=== PATIENT | male | born 1985 | race Caucasian/White ===

== ENCOUNTER 2022-09-25 14:39 | Emergency (ER) | payer MEDICAID ==
[2022-09-25] MEDS ORDERED: XYLOCAINE 1%/Epi 1:100000 MDV 20 ML ONE (14:48)
[2022-09-25] MEDS ORDERED: Adacel Vial IM ONE ×2 (15:09→15:10)
--- NOTE | 2022-09-25 15:19 | ERPHSYRPT ---
- History of Present Illness Source: patient Exam Limitations: no limitations Patient Subjective Stated Complaint: laceration to left hand Triage Nursing Assessment: Patient reports to emergency room with laceration to left anterior hand from a knife. Range of motion within normal limitations. Pulses and cap refill present. Patient reports pain 5/10 at this time. Physician History: 37 yo WM w L 3.5cm palm laceration per pocket knife at home accidently before arrival. Pt is R handed and is not up to date on his Tdap. Other injuries are denied at this time. Pt has FROM of all digits, along with good distal capillary return and sensation. Occurred: just prior to arrival Method of Injury: incised Severity of Pain-Max: mild Severity of Pain-Current: mild Extremities Pain Location: hand: left Modifying Factors: Improves With: nothing Associated Symptoms: none Hx Tetanus, Diphtheria Vaccination/Date Given: No Hx Influenza Vaccination/Date Given: No Travel Risk - International Travel Have you traveled outside of the country in past 3 weeks: No - Coronavirus Screening Are you exhibiting any of the following symptoms?: No Close contact with a COVID-19 positive Pt in past 14-21 Days: No - Vaccine Status Have you recieved a Covid-19 vaccination: No - Review of Systems Constitutional: No Symptoms Eyes: No Symptoms Ears, Nose, & Throat: No Symptoms Respiratory: No Symptoms Cardiac: No Symptoms Abdominal/Gastrointestinal: No Symptoms Genitourinary Symptoms: No Symptoms Skin: No Symptoms Neurological: No Symptoms Psychological: No Symptoms Endocrine: No Symptoms Hematologic/Lymphatic: No Symptoms Immunological/Allergic: No Symptoms - Past Medical History Pertinent Past Medical History: No Neurological History: No Pertinent History ENT History: No Pertinent History Cardiac History: No Pertinent History Respiratory History: No Pertinent History Endocrine Medical History: No Pertinent History Musculoskeletal History: No Pertinent History GI Medical History: No Pertinent History History: No Pertinent History Psycho-Social History: No Pertinent History Male Reproductive Disorders: No Pertinent History - Past Surgical History Past Surgical History: Yes Neuro Surgical History: No Pertinent History Cardiac: No Pertinent History Respiratory: No Pertinent History Gastrointestinal: No Pertinent History Genitourinary: No Pertinent History Musculoskeletal: No Pertinent History Male Surgical History: No Pertinent History Other Surgical History: surgery on jaw - Social History Smoking Status: Current every day smoker Exposure to second hand smoke: Yes Drug Use: marijuana Patient Lives Alone: No - Nursing Vital Signs Nursing Vital Signs: Initial Vital Signs Pulse Rate 110 H 05/10/23 14:39 Respiratory Rate 19 09/25/22 14:39 Blood Pressure 134/80 09/25/22 14:39 O2 Sat by Pulse Oximetry 98 09/25/22 14:39 Pain Scale Pain Intensity 5 Tachy - Physical Exam General Appearance: no apparent distress Eyes, Ears, Nose, Throat Exam: normal ENT inspection, TMs normal, pharynx normal, moist mucous membranes Neck Exam: normal inspection, non-tender, supple, full range of motion, No Brudzinski, No Kernig's, No meningismus, No carotid bruit Cardiovascular/Respiratory Exam: normal breath sounds, tachycardia Abdominal Exam: non-tender, soft Back Exam: normal inspection Shoulder Exam: normal inspection Elbow/Forearm Exam: normal inspection Wrist Exam: normal inspection Hand Exam: laceration (3.5 cm L palm lac/Good distal capillary return and sensation/FROM of all digits) DTR - Upper Extremity Exam: bicep (R): 2+, bicep (L): 2+ Neuro/Tendon Exam: normal sensation, normal motor functions, normal tendon funct ions, responds to pain, no evidence tendon injury, No motor deficit, No sensory deficit Mental Status Exam: alert, oriented x 3, cooperative Skin Exam: normal color, warm, dry, No rash SpO2 Interpretation: normal SpO2: 98 O2 Delivery: Room Air Procedures - Laceration/Wound Repair Left Hand Wound Location: Left (L palm) Wound Length (cm): 3.5 Wound's Depth, Shape: linear Wound Explored: clean Irrigated: Yes Hibiclens Prep: Yes Anesthesia: local, 1% Lidocaine Volume Anesthetic (ccs): 5 Wound Repaired With: sutures Suture Size/Type: 3-0 (3.0 Ethilon x7) - Course Nursing assessment & vital signs reviewed: Yes Ordered Tests: Medication Summary Discontinued Medications Generic Name Dose Route Start Last Admin Trade Name Freq PRN Reason Stop Dose Admin Diphtheria/Tetanus/Acell Pertussis 0.5 ml 09/25/22 15:09 09/25/22 15:11 Tdap --Diph,Pertuss(Acell),Tet Vac/Pf 0.5 Ml Vial IM 09/25/22 15:10 0.5 ml .ONCE ONE Administration Diphtheria/Tetanus/Acell Pertussis Confirm 09/25/22 15:10 Tdap --Diph,Pertuss(Acell),Tet Vac/Pf 0.5 Ml Vial Administered 09/25/22 15:11 Dose 0.5 ml IM .STK-MED ONE Lidocaine/Epinephrine Confirm 09/25/22 14:48 Lidocaine Hcl/Epinephrine 1% 20 Ml Administered 09/25/22 14:49 Dose 5 ml .ROUTE .STK-MED ONE - Progress Progress: improved Progress Note: 09/25/22 15:19 Nursing note and vital signs reviewed No food or housing insecurities noted Tdap given in ER Wound explored wo evidence of tendon injury 09/25/22 15:22 Wound sterilly dressed w Bacitracen Counseled pt/family regarding: diagnosis, need for follow-up Medical Desision Making - Risk of complications Low Risk: Low risk of morbidity from additional dx testing or treatment The pt has a mod risk of morbidity or mortality based on: Need for prescription drug management - Departure Departure Disposition: Home Clinical Impression: Hand laceration Condition: Stable Critical Care Time: No Instructions: Laceration Repair With Stitches (DC) Additional Instructions: Keep laceration dry for 2 days, then wash gently 1-2 times a day with soap/water Sutures out in 10 days Watch for signs of infection-increasing redness/Any pus/Temperature greater than 100.5/Increasing pain Start Keflex Prescriptions: Cephalexin Mh 500 mg [Keflex 500 mg] 500 mg PO TID 10 Days #30 cap
[2022-09-25 15:42] VITALS: BP 122/96; PULSE 98; O2SAT 97
== END 2022-09-25 15:40 | disposition home or self-care (01) ==
LOC: ED 14:39
DX: S61.412A Laceration without foreign body of left hand, initial encounter (principal); Z72.0 Tobacco use; Z23 Encounter for immunization
CPT/HCPCS: 90471; 90715; 99282

== ENCOUNTER 2022-10-06 14:56 | Emergency (ER) | payer MEDICAID | END 2022-10-06 16:45 | disposition left against medical advice (07) | LOC: ED 14:56 | DX: Z53.21 Procedure and treatment not carried out due to patient leaving prior to being seen by health care provider (principal) | CPT/HCPCS: 99281 ==